=== PATIENT | female | born 1960 | race Caucasian/White ===

== ENCOUNTER 2017-10-08 21:15 | Emergency (ER) | payer OTHER ==
[~2017-10-08] VITALS: Ht 154.9 cm; Wt 75.6 kg
[2017-10-08 22:26] VITALS: BP 141/94
== END 2017-10-08 22:27 | disposition home or self-care (01) ==
LOC: ER 21:16
DX: R00.0 Tachycardia, unspecified (principal); R00.2 Palpitations; J06.9 Acute upper respiratory infection, unspecified; I10 Essential (primary) hypertension; J45.909 Unspecified asthma, uncomplicated; K21.9 Gastro-esophageal reflux disease without esophagitis; M19.90 Unspecified osteoarthritis, unspecified site; Z90.710 Acquired absence of both cervix and uterus
CPT/HCPCS: 93005; 99283